=== PATIENT | male | born 1960 | race Caucasian/White ===

== ENCOUNTER 2016-11-01 04:24 | Emergency (ER) | payer OTHER ==
[2016-11-01 05:08] LABS: BASOPHIL 0.5 % (0-2); EOSINOPHIL 1.7 % (0-5); HCT 45.3 % (42.0-52.0); HGB 16.1 g/dl (13.2-18.0); LYMPHOCYTE 37.5 % (15-48); MCH 30.1 pg (25.0-31.0); MCHC 35.5 g/dL (32.0-36.0); MCV 84.8 fL (78.0-100.0); MONOCYTE 13.6 % (0-12); MPV 9.3 fL (6.0-9.5); NEUTROPHIL 46.7 % (41-80); PLT 224 K/uL (150-400); RBC 5.34 M/uL (4.70-6.00); RDW 12.9 % (11.5-14.0); WBC 8.5 K/uL (4.0-10.5)
[2016-11-01 05:29] LABS: ALBUMIN 4.5 g/dL (3.5-5.0); BILIRUBIN - TOTAL 0.3 mg/dL (0.1-1.0); GLOBULIN (CALCULATION) 3.2 g/dL (2.2-4.2); POTASSIUM 4.2 mmol/L (3.5-5.1); TOTAL PROTEIN 7.7 g/dL (6.4-8.3)
[2016-11-01 05:47] LABS: BILIRUBIN NEGATIVE (NEGATIVE); BLOOD TRACE-INTACT Ery/uL (NEGATIVE); CLARITY CLEAR (CLEAR); COLOR YELLOW (YELLOW); GLUCOSE (U) NORMAL (NORMAL); KETONE (U) NEGATIVE (NEGATIVE); LEUKOCYTES NEGATIVE Leu/uL (NEGATIVE); NITRITE NEGATIVE (NEGATIVE); PROTEIN NEGATIVE (NEGATIVE); UROBILINOGEN 0.2 mg/dL (0.2-1.0)
== END 2016-11-01 06:43 | disposition home or self-care (01) ==
LOC: FER 04:24
PROVIDERS: Emergency Medicine
DX: R10.9 Unspecified abdominal pain (principal); I10 Essential (primary) hypertension; Z85.46 Personal history of malignant neoplasm of prostate; Z87.891 Personal history of nicotine dependence; Z79.899 Other long term (current) drug therapy
CPT/HCPCS: 36415; 80053; 81001; 82150; 83690; 85025; 99284